=== PATIENT | female | born 1955 | race Asian ===

== ENCOUNTER 2019-02-13 10:54 | Day surgery (SDC) | payer MEDICAID ==
[2019-02-13] MEDS ORDERED: POLYMYXIN/BACITRACIN 1L IRRIG IRR (11:30)
[2019-02-13] MEDS ORDERED: CEFAZOLIN 1 GM/50 ML (PMX) 50 ML IVPB ×2 (11:30→15:13)
[2019-02-13 14:27] LABS: ADD MAN DIFF? NO
[2019-02-13 14:29] LABS: BASOPHILS % 0.7 % (0.0-2.0); EOSINOPHILS # 0.1 10^3/ul (0.0-0.5); EOSINOPHILS % 2.1 % (0.0-7.0); HEMOGLOBIN 12.3 g/dl (12.0-16.0); LYMPHOCYTES % 36.9 % (15.0-51.0); MEAN CORPUSCULAR HEMOGLOBIN 31.2 pg (29.0-33.0); MEAN CORPUSCULAR HGB CONC 34.3 g/dl (32.0-37.0); MEAN CORPUSCULAR VOLUME 91.1 fl (82.0-101.0); MEAN PLATELET VOLUME 9.1 fl (7.4-10.4); MONOCYTES % 8.2 % (0.0-11.0); NEUTROPHILS % 51.7 % (39.0-77.0); PLATELET COUNT 192 10^3/UL (140-415); RED CELL DISTRIBUTION WIDTH 12.2 % (11.5-14.5)
[2019-02-13 14:32] LABS: HOLD TRANSMISSIONS 1
[2019-02-13 14:37] LABS: HEMATOCRIT 35.9 % (37.0-47.0); MONOCYTE # 0.2 10^3/ul (0.3-0.9); NEUTROPHIL # 1.5 10^3/ul (1.6-7.5); RED BLOOD COUNT 3.94 10^6/ul (4.20-5.40)
[2019-02-13 14:37] LABS: WHITE BLOOD COUNT 2.8 10^3/ul (4.8-10.8)
[2019-02-13 14:47] LABS: ANION GAP 6 (5-13); BLOOD UREA NITROGEN 11 mg/dl (7-20); CALCIUM 9.2 mg/dl (8.4-10.2); CARBON DIOXIDE 28 mmol/L (21-31); CHLORIDE 107 mmol/L (97-110); CREATININE 0.64 mg/dl (0.44-1.00); Estimated GFR > 60 mL/min (>60); GLUCOSE 89 mg/dl (70-220); POTASSIUM 3.6 mmol/L (3.5-5.1); SODIUM 141 mmol/L (135-144)
[2019-02-13 14:49] LABS: INR 0.97
[2019-02-13] MEDS ORDERED: LIDOCAINE 1% (MDV) 20 ML INJ (15:13)
[2019-02-13] MEDS ORDERED: FENTAnyl 50 MCG/ML VIAL (15:13)
[2019-02-13] MEDS ORDERED: MIDAZOLAM 1 MG/ML 2 ML INJ (15:13)
[2019-02-13] MEDS ORDERED: SOD CHLORIDE 0.9% 500 ML (15:59)
== END 2019-02-13 17:15 | disposition home or self-care (01) ==
LOC: CCL 17:15 → SDS 10:54
DX: Z45.2 Encounter for adjustment and management of vascular access device (principal); Z85.3 Personal history of malignant neoplasm of breast
CPT/HCPCS: 36590; 80048; 85025; 85610; 85730